=== PATIENT | male | born 1995 | race Caucasian/White ===

== ENCOUNTER 2018-05-11 18:15 | Emergency (ER) | payer OTHER ==
[2018-05-11 18:30] VITALS: BP 117/56
--- NOTE | 2018-05-11 19:00 | RAD ---
Indication: Continued RIGHT anterior rib pain following injury one month ago. Comparison: No relevant prior exams available on the [facility] for comparison. Technique: Dual energy PA chest and 4 dedicated RIGHT rib views. Report: Corresponding with the skin marker indicating the site of clinical concern there is a nondisplaced fracture at the anterior aspect of the RIGHT seventh rib with subtle early callus formation. Potential adjacent nondisplaced fracture involving the anterior segment of the sixth rib. Negative for pleural effusion or pneumothorax. The heart, pulmonary vasculature, and mediastinal contours are unremarkable. IMPRESSION: RIGHT seventh and possibly sixth nondisplaced rib fractures. Negative for pneumothorax.
[2018-05-11] MEDS ORDERED: Ketorolac INJ* 60 MG/2 ML VIAL IM ONE (19:15)
--- NOTE | 2018-05-11 19:30 | UC ---
Yane Lee Elizabeth, scribed for Wiley Douglass MD on 05/11/18 at 1838 . Truncal Trauma HPI - HPI Summary HPI Summary: This patient is a 23 year old M presenting to [facility] with a chief complaint of intermittent right rib pain since 1 month ago. The patient reports that he slipped from the back of a truck onto his right ribs at the end of March 2018. The patient notes that the pain has worsened recently. The patient rates the pain 3/10 in severity. Symptoms aggravated by coughing, sneezing, and deep breaths. Symptoms alleviated by nothing. - History Of Current Complaint Chief Complaint: UCGeneralIllness Stated Complaint: RIB INJURY Time Seen by Provider: 05/11/18 18:24 Hx Obtained From: Patient Onset/Duration: Sudden Onset, Lasting Weeks - 1 month ago, Still Present Onset Of Pain: Immediate Severity Initially: Mild Severity Currently: Mild Pain Intensity: 3 Pain Scale Used: 0-10 Numeric Aggravating Factor(s): Deep Breathing, Cough, Other - sneezing Alleviating factor(s): Nothing - Allergies/Home Medications Allergies/Adverse Reactions: Allergies Allergy/AdvReac Type Severity Reaction Status Date / Time No Known Allergies Allergy Verified 05/11/18 18:30 PMH/Surg Hx/FS Hx/Imm Hx Previously Healthy: Yes - Surgical History Surgical History: None - Family History Known Family History: Positive: None - patient denies FHx - Social History Alcohol Use: Occasionally Substance Use Type: Marijuana Substance Use Comment - Amount & Last Used: occasionally Smoking Status (MU): Never Smoked Tobacco Review of Systems Constitutional: Negative - NEGATIVE FEVER ENT: Negative - NEGATIVE EPISTAXIS Gastrointestinal: Negative - NEGATIVE VOMITING Musculoskeletal: Myalgia - right rib cage pain All Other Systems Reviewed And Are Negative: Yes Physical Exam - Summary Physical Exam Summary: VITAL SIGNS: Reviewed. GENERAL: Patient is a well-developed and nourished MALE who is lying comfortable in the stretcher. Patient is not in any acute respiratory distress. HEAD AND FACE: Normocephalic EYES: PERRLA, EOMI x 2. EARS: Hearing grossly intact. MOUTH: Oropharynx within normal limits. NECK: Supple, trachea is midline, no adenopathy, no JVD, no carotid bruit. CHEST: Symmetric, no tenderness at palpation LUNGS: Clear to auscultation bilaterally. No wheezing or crackles. CVS: Regular rate and rhythm, S1 and S2 present, no murmurs or gallops appreciated. ABDOMEN: Soft. Bowel sounds are normal. No abdominal abnormal pulsations. Tender on 8th, 9th, 10th rib mid-axiallary EXTREMITIES: Full ROM in all major joints, no edema, no cyanosis or clubbing. NEURO: Alert and oriented x 3. No acute neurological deficits. Speech is normal and follows commands. SKIN: Dry and warm Triage Information Reviewed: Yes Vital Signs: Initial Vital Signs Temp 98.4 F 05/11/18 18:26 Pulse 74 05/11/18 18:26 Resp 18 05/11/18 18:26 BP 117/56 05/11/18 18:26 Pulse Ox 100 05/11/18 18:26 Vital Signs Reviewed: Yes Diagnostics - Radiology Right Ribs and Chest XR Xray Interpretation: Positive (See Comments) - IMPRESSION: RIGHT seventh and possibly sixth nondisplaced rib fractures. Negative for pneumothorax. Dr. Douglass has reviewed this report. Radiology Interpretation Completed By: Radiologist Truncal Trauma Course/Dx - Course Course Of Treatment: X-ray of the wrist shows positive for rib fractures. In the ED course the patient was given Toradol for the pain. Patient was given a prescription for [place] and he also take ibuprofen as needed. He will follow with the primary care physician as needed. Patient explains a incentive spirometer. He would be doing his on breathing exercises. - Differential Dx/Diagnosis Provider Diagnoses: Rib fracture Discharge - Sign-Out/Discharge Documenting (check all that apply): Discharge/Admit/Transfer - Discharge Plan Condition: Stable Disposition: HOME Discharge Disposition Comment: discharge home Prescriptions: Hydrocodone/Acetaminophen [[place] 5-325 Tablet] 1 each PO Q6H PRN #12 tablet MDD 4 PRN Reason: Pain Patient Education Materials: Rib Fracture (ED) Referrals: [facility] [place] PHYSICIAN REFERRAL [Outside] - Billing Disposition and Condition Condition: STABLE Disposition: Home The documentation as recorded by the Yane guzman Elizabeth accurately reflects the service I personally performed and the decisions made by , Wiley Douglass MD.
== END 2018-05-11 19:52 | disposition home or self-care (01) ==
LOC: UCEAST 18:15
DX: S22.31XA Fracture of one rib, right side, initial encounter for closed fracture (principal); W17.89XA Other fall from one level to another, initial encounter; Y93.9 Activity, unspecified; Y92.9 Unspecified place or not applicable
CPT/HCPCS: 96372; 99202; G0463; J1885